=== PATIENT | male | born 2000 | race Caucasian/White ===

== ENCOUNTER 2021-12-18 13:06 | Emergency (ER) | payer BC, SELFPAY ==
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
[2021-12-18 13:20] VITALS: BP 145/72; PULSE 78; RESP 16; TEMP 37.2; O2SAT 100
[2021-12-18] MEDS: SILVER SULFADIAZINE 1% CR 50 GM JAR (*BKC) 1 APPLIC TOPICAL (13:44)
== END 2021-12-18 13:57 | disposition home or self-care (01) ==
PROVIDERS: Emergency Provider Nurse Practitioner
DX: T24.201A Burn of second degree of unspecified site of right lower limb, except ankle and foot, initial encounter (principal); X16.XXXA Contact with hot heating appliances, radiators and pipes, initial encounter
CPT/HCPCS: 16020; 99213; A9270; G0463